=== PATIENT | female | born 1985 | race Two or more races ===

== ENCOUNTER 2017-06-29 05:19 | Inpatient (IN) | payer OTHER ==
[~2017-06-29] VITALS: Ht 157.5 cm; Wt 3.2 kg
[2017-06-29] MEDS ORDERED: CLINDAMYCIN PHO40 GM VAG (06:01)
[2017-06-29] MEDS ORDERED: PRENATAL 19 TA1 EACH PO (06:01)
[2017-06-29] MEDS ORDERED: SYNTHROID88 MCG PO (06:01)
[2017-06-29] MEDS ORDERED: NIFE60TA3 PO ×2 (06:03)
== END 2017-07-02 11:07 | DRG 766 ==
LOC: OB/GYN 05:19 → LDR 05:19 → OB/GYN 10:11
PROVIDERS: Specialist
PROC: 4A1HXCZ Monitoring of Products of Conception, Cardiac Rate, External Approach (ICD-10-PCS; 2017-06-29)
PROC: 10D00Z1 Extraction of Products of Conception, Low, Open Approach (ICD-10-PCS; principal; 2017-06-29 10:30)
DX: O69.1XX0 Labor and delivery complicated by cord around neck, with compression, not applicable or unspecified (principal); Z3A.38 38 weeks gestation of pregnancy; Z37.0 Single live birth

== ENCOUNTER 2020-09-17 05:43 | Inpatient (IN) | payer OTHER ==
[~2020-09-17] VITALS: Ht 157.5 cm; Wt 2.7 kg
[~2020-09-17 05:43] MED LIST: CLINDAMYCIN PHO40 GM VAG; NIFE60TA3 PO; PRENATAL 19 TA1 EACH PO; SYNTHROID88 MCG PO
[2020-09-17] MEDS ORDERED: PRENATAL TABLE1 EAC1 PO ×2 (06:43→06:44)
[2020-09-17] MEDS ORDERED: SYNTHROID88 MCG PO (06:43)
[2020-09-17] MEDS ORDERED: INTEGRA PLUS C1 EACH (08:00)
[2020-09-17] MEDS ORDERED: CLOTRIMAZOLE-BE15 G1 (08:00)
[2020-09-17] MEDS ORDERED: FAMOTIDINE20 MG (08:00)
== END 2020-09-19 13:38 | disposition home or self-care (01) | DRG 788 ==
LOC: LDR 05:43 → SURG-SUITE 05:43 → LDR 07:05 → O/R 09:35 → OB/GYN 12:07 → SURG-SUITE 13:40
PROVIDERS: ADMIT Specialist; ATTEND Specialist
PROC: 4A1HXFZ Monitoring of Products of Conception, Cardiac Rhythm, External Approach (ICD-10-PCS; 2020-09-17)
PROC: 10D00Z1 Extraction of Products of Conception, Low, Open Approach (ICD-10-PCS; principal; 2020-09-17 07:45)
DX: O65.5 Obstructed labor due to abnormality of maternal pelvic organs (principal); O34.211 Maternal care for low transverse scar from previous cesarean delivery; O26.893 Other specified pregnancy related conditions, third trimester; Z67.41 Type O blood, Rh negative; Z3A.38 38 weeks gestation of pregnancy; Z37.0 Single live birth; Z20.822 Contact with and (suspected) exposure to COVID-19